=== PATIENT | female | born 1960 | race Caucasian/White ===

== ENCOUNTER → 2016-04-01 | Outpatient (CLI) | payer MEDICARE, MEDICAID ==
[~2016-04-01] MED LIST: BUSPIRONE HCL10 MG PO; COGENTIN GENERIC1 MG PO; COMBIVENT INH14.7 GM IN; DEPAKOTE 500MG500 MG PO; DETROL LA 2 MG C2 MG PO; DETROL LA4 MG PO; DILANTIN 100MG100 MG PO; DOCUSATE SODIU250 MG PO; ENULOSE10 GM/15 M PO; ESCITALOPRAM 2020 MG PO; FENOFIBRATE160 MG PO; FISH OIL 120 MG1 CAP PO; GEODON60 MG PO; HALDOL 1MG. TABL1 MG PO; HYDROCHLOROTHIA25 M1 PO; IBUPROFEN 600M600 MG PO; IMODIUM2 MG PO; LACTULOSE10 GM/15 M PO; LEXAPRO 20 MG T20 MG PO; LIPITOR40 MG PO; LORATADINE 10MG10 M1 PO; MAXZIDE 50 MG-71 TAB PO; MIRALAX17 GM/PACK PO; NEURONTIN 300M300 MG PO; OLANZAPINE20 MG PO; PERPHENAZINE4 MG PO; PERPHENAZINE8 MG PO; PHENYTOIN 100M100 MG PO; PHENYTOIN SODI100 M2 PO; PROMETHAZINE HC25 M1 PO; PROTONIX 40MG T40 MG PO; PROVENTIL0.09 MG/A1 IH; SENNA DOCUSATE1 TAB PO; SEROQUEL XR200 MG PO; SEROQUEL XR400 MG PO; SEROQUEL300 MG PO; TRAZADONE HYDR100 MG PO; TRICOR145 M1 PO; ZOLOFT100 M1 PO; ZYRTEC10 M2 PO
--- NOTE | 2016-04-04 17:12 | RADIOLOGY REPORT PS360 ---
History and Indications: Obesity, hypertension, hyperlipidemia chronic tobacco use family history shortness of breath syncope fatigue abnormal EKG. Procedure: Patient received 0.4 mg Lexiscan resting heart rate was 77 bpm resting blood pressure 130/69 , with Lexiscan maximum heart rate achieved was 109 bpm which is less than 85% of the maximum] heart rate and a blood pressure was 160/75. With Lexiscan patient complained of shortness of breath and stomach discomfort. Electrocardiogram: Resting electrocardiogram showed sinus rhythm right ventricular conduction delay , with Lexiscan less than 1.[address] segment depression noted from the baseline EKG, the EKG portion of the Lexiscan is nondiagnostic. Cardiac stress and resting SPECT images: Cardiac stress and rest SPECT images were obtained using technetium 99 Myoview 9.9 mCi at rest 30.1 mCi at stress, gated SPECT for analysis of segmental wall motion and calculation of the ejection fraction was also done. Cardiac stress and rest SPECT images show uniform myocardial activity without segmental perfusion abnormality, computer derived ejection fraction is 65% with no obvious regional wall motion abnormality, right ventricle is mildly enlarged with normal contractility. Conclusion: 1. The EKG portion of the Lexiscan is nondiagnostic. 2. No obvious scintigraphic evidence of reversible ischemia seen, computer derived ejection fraction is 65% with no obvious regional wall motion abnormality, right ventricle is mildly enlarged with normal contractility.
--- NOTE | 2016-04-04 20:15 | RADIOLOGY REPORT PS360 ---
PROCEDURE: 2-D M-mode and color Doppler study INDICATIONS FOR THE TEST: Chest pain COPD Heart Murmur Tobacco SmokingX Palpitations Fatigue Syncope EdemaX Hypertension Diabetes Mellitus Rheumatic Fever SOBX DOEXObesity Hyperlipidemia Family History HD Additional History SEIZURE DISORDER PATIENT INFORMATION HEIGHT: 67 WEIGHT:211 GENDER: Female B/P:110/70 2-D/M-MODE INTERPRETATION: 2-D MEASUREMENTS OBSERVED VALUES IN CMS Right Ventricular Dimension (RVDd) 1.9 Interventricular Septum (Thickness)(IVsd) .9 Left Ventricular Internal Dimensions(LVIDd) 5.6 Left Ventricular Posterior Wall (Thickness)(LVPWd) .9 Aortic Root 3.6 Aortic Cusp Separation 1.8 Left Atrial Dimensions (LAD) 3.1 2D 1. The left atrium is normal size, the left ventricle is normal size, there is preserved left ventricular systolic function, visually estimated to fraction 55% with no obvious regional wall motion abnormality, endocardial subsequent poorly visualized. 2. The right atrium and right ventricle are normal size and contractility. 3. The aortic mitral and tricuspid is structurally normal. 4. The pulmonic valve not well visualized. 5. No significant pericardial effusion noted. DOPPLER INTERROGATION: Doppler interrogation of the aortic mitral and tricuspid presence of trace mitral and tricuspid regurgitation of no hemodynamic significance. CONCLUSION: 1. Normal left ventricular size preserved left ventricular systolic function visually estimated to fraction 55% with no obvious regional wall motion abnormality, endocardial surface of poorly visualized. 2. Trace mitral and tricuspid regurgitation of no hemodynamic significance. 3. No significant pericardial effusion noted.
== END ==
LOC: RAD 06:47
DX: R06.02 Shortness of breath (principal); J44.9 Chronic obstructive pulmonary disease, unspecified; E78.5 Hyperlipidemia, unspecified; G47.33 Obstructive sleep apnea (adult) (pediatric); Z72.0 Tobacco use
CPT/HCPCS: A9502; J2785

== ENCOUNTER → 2016-12-19 | Outpatient (CLI) | payer MEDICARE, MEDICAID ==
[~2016-12-19] MED LIST changes: +K-DUR 2020 MEQ PO
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
== END ==
LOC: RAD 12:54
DX: R56.9 Unspecified convulsions (principal); F25.9 Schizoaffective disorder, unspecified; Z91.419 Personal history of unspecified adult abuse
CPT/HCPCS: A9576